=== PATIENT | female | born 1955 | race Caucasian/White ===

== ENCOUNTER 2021-07-31 16:19 | Inpatient (IN) | payer MEDICARE, OTHER ==
[~2021-07-31] VITALS: Ht 162.6 cm; Wt 50.3 kg
[2021-07-31] MEDS ORDERED: HYDR25TA84 PO (16:56)
[2021-07-31] MEDS ORDERED: LIPA1CAP18 PO ×2 (16:56→17:21)
[2021-07-31] MEDS ORDERED: CARV12.530 PO (16:56)
[2021-07-31] MEDS ORDERED: CLOPIDOGREL BISULFATE 75 MG TABLET PO ONE (17:15)
[2021-07-31] MEDS ORDERED: DEXTROSE 50%-WATER 25 GM/50 ML SYRINGE IVP PRN (17:15)
[2021-07-31] MEDS ORDERED: ONDANSETRON HCL 4 MG/2 ML VIAL IVP PRN ×2 (17:15)
[2021-07-31] MEDS ORDERED: ACETAMINOPHEN 325 MG TABLET PO PRN ×2 (17:15)
[2021-07-31] MEDS ORDERED: MAGNESIUM HYDROXIDE SUSPENSION 30 ML UDCUP PO PRN (17:15)
[2021-07-31] MEDS ORDERED: HEPARIN SODIUM,PORCINE 5,000 UNITS/ML VIAL IVP PRN ×4 (17:15→18:45)
[2021-07-31] MEDS ORDERED: MORPHINE SULFATE 2 MG/ML SYRINGE IVP PRN (17:15)
[2021-07-31] MEDS ORDERED: HEPARIN SODIUM 25000 UNITS/D5W 250 ML IV ONE (17:15)
[2021-07-31] MEDS ORDERED: METOPROLOL TARTRATE 50 MG TABLET PO ONE (17:15)
[2021-07-31] MEDS ORDERED: 0.9% SODIUM CHLORIDE 10 ML SYRINGE IVP PRN (17:15)
[2021-07-31] MEDS ORDERED: INSULIN LISPRO 100 UNITS/ML SQ PRN (17:15)
[2021-07-31] MEDS ORDERED: ERGO500093 PO (17:20)
[2021-07-31] MEDS ORDERED: FAMO40TA7 PO (17:20)
[2021-07-31] MEDS ORDERED: ENAL-89 PO (17:20)
[2021-07-31] MEDS ORDERED: EVOL140S2 SQ (17:20)
[2021-07-31] MEDS ORDERED: CARV3 PO (17:20)
[2021-07-31 17:27] LABS: COVID AG,FIA SOURCE NASOPHARYNGEAL
[2021-07-31 17:29] LABS: BASOPHILS % (AUTO) 0.6 % (0.0-2.0); EOSINOPHILS % (AUTO) 0.2 % (1.0-6.0); HEMATOCRIT 34.9 % (36-46); HEMOGLOBIN 11.7 g/dL (12.0-16.0); LYMPHOCYTES # (AUTO) 1.9 K/uL (1.0-4.8); LYMPHOCYTES % (AUTO) 24.2 % (22.0-44.0); MEAN CORPUSCULAR HEMOGLOBIN 30.2 pg (26.0-34.0); MEAN CORPUSCULAR HGB CONC 33.5 G/dL (31.0-37.0); MEAN CORPUSCULAR VOLUME 90 fL (80-100); MONOCYTES # (AUTO) 1.1 K/uL (0.1-1.0); MONOCYTES % (AUTO) 14.5 % (2.0-9.0); NEUTROPHILS # (AUTO) 4.7 K/uL (1.8-7.7); NEUTROPHILS % (AUTO) 60.5 % (40.0-70.0); PLATELET COUNT (AUTO) 206 K/uL (150-450); RED BLOOD CELL COUNT(AUTO) 3.87 MIL/uL (4.00-5.20); RED CELL DISTRIBUTION WIDTH 13.5 % (11.5-14.5)
[2021-07-31] MEDS ORDERED: HEPARIN SODIUM,PORCINE 5,000 UNITS/ML VIAL IVP ONE ×2 (17:30→18:45)
[2021-07-31] MEDS ORDERED: HEPARIN SODIUM 25000 UNITS/D5W 250 ML IV SCH (17:30)
[2021-07-31 17:43] LABS: PROTHROMBIN TIME 10.7 SEC (9.4-11.6)
[2021-07-31] MEDS ORDERED: HEPARIN SODIUM 25000 UNITS/D5W 250 ML IV PRN (18:45)
[2021-07-31] MEDS: CARVEDILOL 6.25 MG TABLET PO SCH (21:00)
[2021-07-31] MEDS: DOCUSATE SODIUM 100 MG CAPSULE PO SCH (21:31)
[2021-07-31] MEDS: FAMOTIDINE 20 MG TABLET PO SCH (21:31)
[2021-07-31 21:49] LABS: GLUCOSE,POINT OF CARE 123 MG/DL (70-110)
[2021-07-31 23:40] LABS: BASOPHILS % (AUTO) 0.5 % (0.0-2.0); EOSINOPHILS % (AUTO) 0.4 % (1.0-6.0); HEMATOCRIT 33.9 % (36-46); HEMOGLOBIN 11.3 g/dL (12.0-16.0); LYMPHOCYTES # (AUTO) 1.7 K/uL (1.0-4.8); LYMPHOCYTES % (AUTO) 25.3 % (22.0-44.0); MEAN CORPUSCULAR HEMOGLOBIN 30.4 pg (26.0-34.0); MEAN CORPUSCULAR HGB CONC 33.4 G/dL (31.0-37.0); MEAN CORPUSCULAR VOLUME 91 fL (80-100); MONOCYTES # (AUTO) 0.7 K/uL (0.1-1.0); MONOCYTES % (AUTO) 10.5 % (2.0-9.0); NEUTROPHILS # (AUTO) 4.3 K/uL (1.8-7.7); NEUTROPHILS % (AUTO) 63.3 % (40.0-70.0); PLATELET COUNT (AUTO) 204 K/uL (150-450); RED BLOOD CELL COUNT(AUTO) 3.71 MIL/uL (4.00-5.20); RED CELL DISTRIBUTION WIDTH 13.5 % (11.5-14.5)
[2021-08-01] VITALS (9 sets, daily range): BP systolic 78–122; BP diastolic 46–64
[2021-08-01 00:08] LABS: PROTHROMBIN TIME 11.1 SEC (9.4-11.6)
[2021-08-01 01:05] LABS: ALBUMIN 3.7 g/dL (3.4-5.0); BILIRUBIN,TOTAL 0.5 mg/dL (0.1-1.0); CALCIUM, TOTAL 8.9 mg/dL (8.8-10.5); CREATININE 0.96 mg/dL (0.60-1.30); POTASSIUM 3.8 mmol/L (3.5-5.1); TOTAL PROTEIN, SERUM 7.2 g/dL (6.4-8.2)
[2021-08-01 05:31] LABS: BASOPHILS % (AUTO) 0.4 % (0.0-2.0); EOSINOPHILS % (AUTO) 0.4 % (1.0-6.0); HEMATOCRIT 34.8 % (36-46); HEMOGLOBIN 11.6 g/dL (12.0-16.0); LYMPHOCYTES % (AUTO) 30.3 % (22.0-44.0); MEAN CORPUSCULAR HEMOGLOBIN 30.6 pg (26.0-34.0); MEAN CORPUSCULAR HGB CONC 33.4 G/dL (31.0-37.0); MEAN CORPUSCULAR VOLUME 92 fL (80-100); MONOCYTES # (AUTO) 0.9 K/uL (0.1-1.0); MONOCYTES % (AUTO) 12.7 % (2.0-9.0); NEUTROPHILS # (AUTO) 3.8 K/uL (1.8-7.7); NEUTROPHILS % (AUTO) 56.2 % (40.0-70.0); PLATELET COUNT (AUTO) 198 K/uL (150-450); RED CELL DISTRIBUTION WIDTH 13.8 % (11.5-14.5)
[2021-08-01 05:53] LABS: ALBUMIN 3.6 g/dL (3.4-5.0); BILIRUBIN,TOTAL 0.4 mg/dL (0.1-1.0); CALCIUM, TOTAL 8.9 mg/dL (8.8-10.5); CREATININE 1.04 mg/dL (0.60-1.30); POTASSIUM 3.8 mmol/L (3.5-5.1); TOTAL PROTEIN, SERUM 7.3 g/dL (6.4-8.2)
[2021-08-01] MEDS ORDERED: SODIUM CHLORIDE 0.9% 500 ML IV ONE (08:00)
[2021-08-01] MEDS: ASPIRIN 81 MG CHEWABLE TABLET PO SCH (08:07)
[2021-08-01] MEDS: ATORVASTATIN CALCIUM 40 MG TABLET PO SCH (08:07)
[2021-08-01] MEDS: FAMOTIDINE 20 MG TABLET PO SCH ×2 (08:07→21:52)
[2021-08-01] MEDS: DOCUSATE SODIUM 100 MG CAPSULE PO SCH ×2 (08:07→21:52)
[2021-08-01] MEDS: CARVEDILOL 6.25 MG TABLET PO SCH ×2 (08:08→21:52)
[2021-08-01] MEDS ORDERED: CLOPIDOGREL BISULFATE 75 MG TABLET PO SCH (09:00)
[2021-08-01 20:06] LABS: GLUCOSE,POINT OF CARE 112 MG/DL (70-110)
[2021-08-01 20:06] LABS: GLUCOSE,POINT OF CARE 98 MG/DL (70-110)
[2021-08-01] MEDS ORDERED: SODIUM CHLORIDE 0.9% 1,000 ML IV SCH (21:45)
[2021-08-02] VITALS (13 sets, daily range): BP systolic 92–150; BP diastolic 41–96
[2021-08-02 01:20] LABS: GLUCOSE,POINT OF CARE 145 MG/DL (70-110)
[2021-08-02 05:13] LABS: BASOPHILS % (AUTO) 0.4 % (0.0-2.0); EOSINOPHILS % (AUTO) 0.5 % (1.0-6.0); HEMATOCRIT 28.4 % (36-46); HEMOGLOBIN 9.6 g/dL (12.0-16.0); LYMPHOCYTES # (AUTO) 1.9 K/uL (1.0-4.8); LYMPHOCYTES % (AUTO) 30.8 % (22.0-44.0); MEAN CORPUSCULAR HEMOGLOBIN 30.6 pg (26.0-34.0); MEAN CORPUSCULAR HGB CONC 33.7 G/dL (31.0-37.0); MEAN CORPUSCULAR VOLUME 91 fL (80-100); MONOCYTES # (AUTO) 0.8 K/uL (0.1-1.0); MONOCYTES % (AUTO) 12.8 % (2.0-9.0); NEUTROPHILS # (AUTO) 3.5 K/uL (1.8-7.7); NEUTROPHILS % (AUTO) 55.5 % (40.0-70.0); PLATELET COUNT (AUTO) 176 K/uL (150-450); RED BLOOD CELL COUNT(AUTO) 3.13 MIL/uL (4.00-5.20); RED CELL DISTRIBUTION WIDTH 13.5 % (11.5-14.5)
[2021-08-02 05:26] LABS: CALCIUM, TOTAL 8.1 mg/dL (8.8-10.5); CREATININE 1.03 mg/dL (0.60-1.30); MAGNESIUM 2.2 mg/dL (1.80-2.40); PHOSPHORUS 3.8 mg/dL (2.5-4.9); POTASSIUM 3.8 mmol/L (3.5-5.1)
[2021-08-02] MEDS: ASPIRIN 81 MG CHEWABLE TABLET PO SCH (09:11)
[2021-08-02] MEDS: DOCUSATE SODIUM 100 MG CAPSULE PO SCH ×2 (09:11→20:28)
[2021-08-02] MEDS: CARVEDILOL 6.25 MG TABLET PO SCH ×2 (09:11→20:28)
[2021-08-02] MEDS: ATORVASTATIN CALCIUM 40 MG TABLET PO SCH (09:12)
[2021-08-02] MEDS: FAMOTIDINE 20 MG TABLET PO SCH ×2 (09:12→20:28)
[2021-08-02] MEDS ORDERED: SODIUM BICARBONATE 50 MEQ/50 ML VIAL ONE (14:56)
[2021-08-02] MEDS ORDERED: IOHEXOL 300 MG/ML 50 ML VIAL ONE (14:56)
[2021-08-02] MEDS ORDERED: LIDOCAINE/PF 1% 30 ML VIAL ONE (14:56)
[2021-08-02] MEDS ORDERED: IOHEXOL 300 MG/ML 100 ML VIAL ONE (14:56)
[2021-08-02] MEDS ORDERED: IOHEXOL 300 MG/ML 150 ML VIAL ONE (14:56)
[2021-08-02] MEDS ORDERED: MIDAZOLAM HCL 2 MG/2 ML VIAL ONE (15:48)
[2021-08-02] MEDS ORDERED: FentaNYL CITRATE PF 100 MCG/2 ML VIAL ONE (15:48)
[2021-08-02] MEDS ORDERED: FentaNYL CITRATE PF 100 MCG/2 ML VIAL IVP ONE (16:00)
[2021-08-02] MEDS ORDERED: LIDOCAINE 1% 30 ML/SOD BICARB 8.4% 4 ML SQ ONE (16:00)
[2021-08-02] MEDS ORDERED: MIDAZOLAM HCL 2 MG/2 ML VIAL IVP ONE (16:00)
[2021-08-02] MEDS ORDERED: IOHEXOL 300 MG/ML 150 ML VIAL IARTER ONE (16:00)
[2021-08-02] MEDS ORDERED: HEPARIN SODIUM 1000 UNITS/NS 1,000 ML IARTER ONE (16:00)
[2021-08-02 20:18] LABS: GLUCOSE,POINT OF CARE 104 MG/DL (70-110)
[2021-08-02 20:18] LABS: GLUCOSE,POINT OF CARE 97 MG/DL (70-110)
[2021-08-03 00:28] VITALS: BP 113/67
[2021-08-03 04:42] VITALS: BP 98/57
[2021-08-03 06:05] LABS: BASOPHILS % (AUTO) 0.3 % (0.0-2.0); EOSINOPHILS % (AUTO) 0.3 % (1.0-6.0); HEMATOCRIT 30.3 % (36-46); HEMOGLOBIN 10.3 g/dL (12.0-16.0); LYMPHOCYTES # (AUTO) 1.2 K/uL (1.0-4.8); LYMPHOCYTES % (AUTO) 14.8 % (22.0-44.0); MEAN CORPUSCULAR HEMOGLOBIN 30.9 pg (26.0-34.0); MEAN CORPUSCULAR HGB CONC 33.9 G/dL (31.0-37.0); MEAN CORPUSCULAR VOLUME 91 fL (80-100); MONOCYTES % (AUTO) 11.9 % (2.0-9.0); NEUTROPHILS # (AUTO) 6.1 K/uL (1.8-7.7); NEUTROPHILS % (AUTO) 72.7 % (40.0-70.0); PLATELET COUNT (AUTO) 166 K/uL (150-450); RED BLOOD CELL COUNT(AUTO) 3.33 MIL/uL (4.00-5.20); RED CELL DISTRIBUTION WIDTH 13.4 % (11.5-14.5)
[2021-08-03 06:28] LABS: CALCIUM, TOTAL 8.7 mg/dL (8.8-10.5); CREATININE 0.99 mg/dL (0.60-1.30); POTASSIUM 4.1 mmol/L (3.5-5.1)
[2021-08-03 07:12] VITALS: BP 131/81
[2021-08-03] MEDS: FAMOTIDINE 20 MG TABLET PO SCH (08:19)
[2021-08-03] MEDS: CARVEDILOL 6.25 MG TABLET PO SCH (08:19)
[2021-08-03] MEDS: DOCUSATE SODIUM 100 MG CAPSULE PO SCH (08:19)
[2021-08-03] MEDS: ASPIRIN 81 MG CHEWABLE TABLET PO SCH (08:19)
[2021-08-03] MEDS: ATORVASTATIN CALCIUM 40 MG TABLET PO SCH (08:20)
[2021-08-03] MEDS ORDERED: LISINOPRIL 5 MG TABLET PO SCH (09:00)
[2021-08-03] MEDS ORDERED: ASPI-1450 PO ×2 (10:54→10:55)
[2021-08-03] MEDS ORDERED: CARV6 PO (10:55)
[2021-08-03] MEDS ORDERED: ATOR40TA28 PO (10:55)
[2021-08-03] MEDS ORDERED: LISI-892 PO (10:56)
[2021-08-03 11:25] VITALS: BP 111/69
== END 2021-08-03 12:30 | disposition home or self-care (01) | DRG 280 ==
LOC: EMS 16:22 → 5S 17:03 → ICU 17:12 → 5S 08-02 18:15
PROVIDERS: ADMIT Internal Medicine; ATTEND Internal Medicine
PROC: 4A023N7 Measurement of Cardiac Sampling and Pressure, Left Heart, Percutaneous Approach (ICD-10-PCS; principal; 2021-08-02)
PROC: B211YZZ Fluoroscopy of Multiple Coronary Arteries using Other Contrast (ICD-10-PCS; 2021-08-02)
PROC: B215YZZ Fluoroscopy of Left Heart using Other Contrast (ICD-10-PCS; 2021-08-02)
PROC: B41FYZZ Fluoroscopy of Right Lower Extremity Arteries using Other Contrast (ICD-10-PCS; 2021-08-02)
DX: I21.4 Non-ST elevation (NSTEMI) myocardial infarction (principal); I50.21 Acute systolic (congestive) heart failure; I42.9 Cardiomyopathy, unspecified; E78.5 Hyperlipidemia, unspecified; E11.9 Type 2 diabetes mellitus without complications; I11.0 Hypertensive heart disease with heart failure; N93.9 Abnormal uterine and vaginal bleeding, unspecified; I95.9 Hypotension, unspecified; Z20.822 Contact with and (suspected) exposure to COVID-19; Z83.3 Family history of diabetes mellitus; Z87.891 Personal history of nicotine dependence; Z79.899 Other long term (current) drug therapy; Z82.49 Family history of ischemic heart disease and other diseases of the circulatory system
CPT/HCPCS: 71045; 80048; 80053; 82962; 83735; 84100; 84484; 85025; 85610; 85730; 87081; 93005; 93306; 99291; G0378; J1644; J2250; J3010; J3490; J7030; J7040; Q9967; 36415-L1; 36415-TC